=== PATIENT | female | born 1965 | race Caucasian/White ===

== ENCOUNTER 2020-07-03 10:10 | Emergency (ER) | payer SELFPAY ==
[~2020-07-03] VITALS: Ht 172.7 cm; Wt 79.4 kg
[2020-07-03] MEDS ORDERED: ATORVASTATIN CA20 MG PO (10:34)
[2020-07-03] MEDS ORDERED: AMLODIPINE BESYL5 MG PO (10:34)
[2020-07-03] MEDS ORDERED: TRAZODONE HCL150 MG PO (10:34)
[2020-07-03] MEDS ORDERED: EFFEXOR XR150 MG PO (10:34)
[2020-07-03] MEDS ORDERED: LEVOTHYROXINE150 MCG PO (10:34)
== END 2020-07-03 10:54 | disposition left against medical advice (07) ==
LOC: ED 10:10
DX: M25.532 Pain in left wrist (principal); Z79.899 Other long term (current) drug therapy
CPT/HCPCS: 99283

== ENCOUNTER 2021-07-26 03:43 | Inpatient (IN) | payer BC, MEDICARE ==
[~2021-07-26] VITALS: Ht 172.7 cm; Wt 85.0 kg
[~2021-07-26 03:43] MED LIST: AMLODIPINE BESYL5 MG PO; ATORVASTATIN CA20 MG PO; EFFEXOR XR150 MG PO; LEVOTHYROXINE150 MCG PO; TRAZODONE HCL150 MG PO
[2021-07-26] MEDS ORDERED: CHLORTHALIDONE25 MG PO (03:56)
[2021-07-26] MEDS ORDERED: LEVOTHYROXINE125 MCG PO (07:29)
[2021-07-26] MEDS ORDERED: VENLAFAXINE H37.5 M1 PO (07:30)
[2021-07-26] MEDS ORDERED: VENLAFAXINE HC150 MG PO (07:31)
--- NOTE | 2021-07-26 07:50 | NUR ---
Report received fron ED SHOLA Leone, pt stable on 2L via Nc, will be transfered to the [facility] floor via stretcher.
--- NOTE | 2021-07-26 08:10 | NUR ---
Pt arrives to the medsur floor via stretcher, pt able to independently transfer to bed. VSS on 2L via NC. Admission and assesment complete, medications given, and IV abx hung and infusing per provider order. Pt c/o of L ear pain, PRN medication given per request. Pt denies any other needs at this time.
--- NOTE | 2021-07-26 09:06 | NUR ---
THIS RN TO ROOM TO CHECK ON PT. IV ABX COMPLETE, 2ND ABX STARTED. PT UP TO RESTROOM INDEPENDANTLY. VOID MISSES HAT, UNMEASURED. PT DENIES DYSURIA. PT REPORTS LEFT EAR ACHE IS "MUCH BETTER" NOW 11/03. PT DENIES NEED FOR ADDITIONAL MEDICATION. BREAKFAST ARRIVED. PT UP TO CHAIR FOR BREAKFAST. NO ADDITIONAL REQUESTS OR COMPLAINTS. CALL LIGHT WITHIN REACH.
--- NOTE | 2021-07-26 09:19 | NUR ---
PREPPED PT'S CHAIR AND ASSISTED PT WITH IV POLE. PT INDEPENDENT IN ROOM. PT NOW IN CHAIR. CALL LIGHT WITHIN REACH, NO FURTHER NEEDS AT THIS TIME.
--- NOTE | 2021-07-26 09:35 | NUR ---
PT UP IN RODRIGUEZ STATING SHE IS "GOING TO THE GIFT SHOP." PT ADIVSED BY DR. PHAM THAT SHE SHOULD NOT LEAVE THE ROOM SHE MAY BE CONTAGEOUS. PT REPORTS..."WELL I WANTED TO GO OUT AND SMOKE." PT ADVISED THAT SMOKING IS NOT PERMITTED ON HOSPITAL PROPERTY. NICOTENE PATCH AND LOZANGES OFFERED. PT REQUESTS BOTH. ORDER PLACED. PT RETURNS TO ROOM. MEDICATIONS GIVEN (SEE MAR). PTS PRIMARY RN UPDATED. CALL LIGHT WITHIN REACH.
--- NOTE | 2021-07-26 09:56 | NUR ---
PT LYING IN BED CHATTING. CALL LIGHT WITHIN REACH NO FURTHER NEEDS AT THIS TIME.
--- NOTE | 2021-07-26 10:00 | NUR ---
Pt sitting up safely in chair w/ call light in reach, eating breakfast, no needs at this time
--- NOTE | 2021-07-26 12:00 | NUR ---
Pt sitting up in bed eating lunch w/ call light in reach no needs at this time.
--- NOTE | 2021-07-26 12:58 | NUR ---
MED REC COMPLETED BY PHARMACY
--- NOTE | 2021-07-26 14:00 | NUR ---
Pt c/o L ear pain, PRN pain meds given per request, pt sitting up safely in bed w/ call light in reach, denies any further needs at this time
--- NOTE | 2021-07-26 17:00 | NUR ---
Pt c/o continuing L ear pain, PRN pain meds given per request, pt otherwise stable on 2L via NC, no further needs at this time
--- NOTE | 2021-07-26 18:21 | NUR ---
PT HUDDLED UP UNDER BLANKETS. PT SEEMS DROOPY. PT COMPLAINS OF EAR PAIN. BP LOW AND TAKEN TWICE. SHOLA GUERRA NOTIFIED. CALL LIGHT IN REACH, NO FURTHER NEEDS AT THIS TIME
--- NOTE | 2021-07-26 19:30 | NUR ---
IN TO PROVIDE PT WITH ICE WATER AND ICE CHIPS
--- NOTE | 2021-07-26 19:36 | NUR ---
SHIFT REPORT RECEIVED FROM MARI JOLLEY. NEW BAG IV FLUIDS PROVIDED. PT LEFT EAR PAIN 02/02, PRN PAIN MED PROVIDED. NO OTHER NEEDS. CALL LIGHT IN REACH.
--- NOTE | 2021-07-26 21:00 | NUR ---
CALL LIGHT ON, PT STATES SHE PULLED SOMETHING OUT OF HER EAR, WANTS THE RN TO LOOK, THIS INFLATED BALL MOLDER IN TO CHECK RN WAS IN A PT RM, PT HAS BEEN HAVING DRAINAGE FROM EAR INFECTION, WILL HAVE RN TO CHECK UP ON PT, PT ALSO WANTS TO GET SOME TOWELS SO PT CAN SHOWER, LET PT KNOW IT WILL BE A MINUTE, BUT WE WILL TRY TO GET PT A SHOWER SOON WE CAN, NO FURTHER NEEDS AT THIS TIME
--- NOTE | 2021-07-26 21:30 | NUR ---
ASSESSMENT COMPLETED. GCS 15, A&O X4. LUNGS CLEAR IN UPPER LOBES AND DIM IN LOWER LOBES. SPO2 96% ON 2L NC. HEART TONES REGULAR. ABD SOFT, NONTENDER, BOWEL TONES ACTIVE. CMS INTACT. IV WNL, IV FLUIDS INFUSING PER ORDER. ICE WATER PROVIDED. SCHEDULED MEDS PROVIDED. NO OTHER NEEDS. CALL LIGHT IN REACH.
--- NOTE | 2021-07-26 21:40 | NUR ---
IN TO GET VITALS, NO FURTHER NEEDS AT THIS TIME
--- NOTE | 2021-07-26 23:58 | NUR ---
PT RESTING IN BED, EYES CLOSED. RR EVEN, UNLABORED. CALL LIGHT IN REACH.
--- NOTE | 2021-07-27 02:00 | NUR ---
VS AND I&O COMPLTED. PT REPORTS 4/10 LEFT EAR PAIN, PRN PAIN MED PROVIDED. ASSESSMENT COMPLETED. LUNGS CLEAR IN UPPER LOBES AND DIM IN LOWER LOBES. IV WNL, IV FLUIDS INFUSING PER ORDER. NC @ 2L. NO OTHER NEEDS. CALL LIGHT IN REACH.
--- NOTE | 2021-07-27 04:00 | NUR ---
PT RESTING IN BED, EYES CLOSED. RR EVEN, UNLABORED. NC @ 2L. IV FLUIDS INFUSING PER ORDER. CALL LIGHT IN REACH.
--- NOTE | 2021-07-27 05:39 | NUR ---
vs and i&o completeed. iv wnl. new bag iv fluids provided. scheduled med provided. prn pain med provided for 6/10 left ear pain. no other needs. call light in reach.
--- NOTE | 2021-07-27 07:30 | NUR ---
Shift report recieved from SHOLA Brush, pt resting safely w/ call light in reach and eyes closed, RR even and unlabored on 2L via NC
--- NOTE | 2021-07-27 07:43 | EKG ---
[facility] [address] [facility] [place] [address] Signed Normal sinus rhythm Incomplete right bundle branch block Borderline ECG No previous ECGs available Confirmed by PHILLY PHAM MD ([id number]) on 07/27/2021 7:43:12 AM Electronically Signed By: PHILLY PHAM MD 07/27/21 0743 PATIENT NAME: ISAK MOSQUEDA VIJAY Electrocardiogram DATE OF : 63 PHYSICIAN: PHILLY PHAM MD REPORT #: [id number] REPORT IS CONFIDENTIAL AND NOT TO BE RELEASED WITHOUT AUTHORIZATION
--- NOTE | 2021-07-27 10:00 | NUR ---
Pt sitting up in bed w/ call light in reach. Morning assesment complete, scheduled meds given, and IV fluids/abx hung and infusing per provider orders. Pt c/o pain in L ear, PRN pain meds given per request. Pt denies any further needs at this time
--- NOTE | 2021-07-27 13:15 | NUR ---
REPORT RECEIVED FROM RN AND PT. CARE RESUMED. PT. C/O EAR AND BACK PAIN. ADMIN PAIN MED. O2 SPOT CHECKED AND WAS 86% ON RA. PLACED ON 2L NC. WILL CONTINUE TO MONITOR.
--- NOTE | 2021-07-27 15:08 | NUR ---
PATIENT O2 WAS SPOT CHECKED. 96% ON 2L NC. TITRATED TO 1L. WILL CONTINUE TO MONITOR.
--- NOTE | 2021-07-27 19:28 | NUR ---
REPORT RECEIVED FROM DAY SHIFT RN. PT LYING IN BED ALERT AND ORIENTED. DENIES NEEDS AT THIS TIME. WHITE BOARD UPDATED. CALL LIGHT IN REACH.
--- NOTE | 2021-07-27 20:30 | NUR ---
EVENING ASSESSMENT COMPLETE. PRN FOR LEFT EAR/HEADACHE PAIN ADMINISTERED PER EMAR. IVF INFUSING PER ORDER. PT DENIES NAUSEA OR SOB. RESPIRATIONS EVEN. SpO2 95% WITH 1L/NC IN PLACE. FRESH WATER AND SODA PROVIDED. PT DENIES FURTHER NEEDS AT THIS TIME. CALL LIGHT IN REACH.
--- NOTE | 2021-07-27 21:15 | NUR ---
SCHEDULED MEDS ADMINISTERED PER EMAR. PRN FOR PAIN ADMINISTERED FOR CONTINUED LEFT EAR PAIN. PT REPORTS HEADACHE PAIN MUCH IMPROVED.
--- NOTE | 2021-07-27 23:15 | NUR ---
CALL LIGHT ANSWERED. FRESH ICE AND WATER PROVIDED PER REQUEST. NO FURTHER NEEDS AT THIS TIME.
--- NOTE | 2021-07-28 02:05 | NUR ---
PT RESTING IN BED LYING ON RIGHT SIDE. EYES CLOSED. RESPIRATIONS EVEN. IVF INFUSING WNL.
--- NOTE | 2021-07-28 05:06 | NUR ---
CALL LIGHT ANSWERED.IV PUMP ALARMING. NEW BAG IVF INFUSING WNL. PT REPORTS SHE IS RESTING WELL. PRN FOR 4/10 CHRONIC BACK PAIN ADMINISTERED PER EMAR. SCHEDULED MEDS ADMINISTERED. VS AND I&O COMPLETE. ASSESSMENT COMPLETE. PT DENIES SOB. LEFT EAR PAIN IMPROVED. NO FURTHER NEEDS AT THIS TIME. CALL LIGHT IN REACH.
--- NOTE | 2021-07-28 09:00 | NUR ---
REPORT RECEIVED FROM NIGHT RN AND PT. CARE RESUMED. PT. IS ALERT AND ORIENTED. 02 SAT WAS 97% ON 1L NC. TAKEN OFF O2 AND MAINTAINED O2 SAT. AT 94% OR GREATER ON RA. LUNGS DIM. THROUGHOUT RIGHT LUNG. IV SITE WNL AND FLUSHES. DISCUSSED MEDS, POC. LEFT RESTING WITH CALL LIGHT IN REACH.
--- NOTE | 2021-07-28 09:15 | NUR ---
patient in the bed resting with her eyes closed. room is tidy, board updated. no needs at this time. call light within reach.
[2021-07-28] MEDS ORDERED: CEFDINIR300 MG PO (11:20)
[2021-07-28] MEDS ORDERED: METOPROLOL SUCC50 MG PO (11:21)
[2021-07-28] MEDS ORDERED: VENTOLIN HFA18 GM INH (12:25)
[2021-07-28] MEDS ORDERED: ADVAIR HFA 115-12 GM INH (12:26)
[2021-07-28] MEDS ORDERED: XANAX0.25 MG PO (12:27)
--- NOTE | 2021-07-28 13:30 | NUR ---
PT LEFT WITH ALL BELONGINGS VIA WHEELCHAIR WITH RN.
== END 2021-07-28 13:15 | disposition home or self-care (01) | DRG 195 ==
LOC: ED 03:43 → MS 07:04
PROVIDERS: ADMIT Internal Medicine; ATTEND Internal Medicine
DX: J13 Pneumonia due to Streptococcus pneumoniae (principal); M79.7 Fibromyalgia; E87.6 Hypokalemia; H66.92 Otitis media, unspecified, left ear; I10 Essential (primary) hypertension; E03.9 Hypothyroidism, unspecified; Z20.822 Contact with and (suspected) exposure to COVID-19; G89.29 Other chronic pain; M54.9 Dorsalgia, unspecified; F17.210 Nicotine dependence, cigarettes, uncomplicated; T50.2X5A Adverse effect of carbonic-anhydrase inhibitors, benzothiadiazides and other diuretics, initial encounter; E83.42 Hypomagnesemia; Z90.49 Acquired absence of other specified parts of digestive tract; Z98.890 Other specified postprocedural states; Z98.1 Arthrodesis status; Z88.5 Allergy status to narcotic agent; Z88.8 Allergy status to other drugs, medicaments and biological substances; Z79.899 Other long term (current) drug therapy; Z90.89 Acquired absence of other organs
CPT/HCPCS: 71045; 80048; 83735; 85025; 93005; 93010; 94760; 96374; 96375; 96376; 99285-25; 99406; C9803; J0456; J0696; J1170; J1885; J2405; J3480; J7050; J7060; U0003

== ENCOUNTER 2024-06-17 08:58 | Day surgery (SDC) | payer BC, MEDICARE ==
[2024-06-15 16:22] VITALS: BP 116/75
[~2024-06-17] VITALS: Ht 172.7 cm; Wt 88.6 kg
[~2024-06-17 08:58] MED LIST changes: +ADVAIR HFA 115-12 GM INH; +CEFAZOLIN SODIUM 2 GM/20 ML SYR IV SCH; +CEFDINIR300 MG PO; +CHLORTHALIDONE25 MG PO; +HEParin SOD (PORCINE) 5,000 UNIT/0.5 ML SYR SUB-Q SCH; +IBLOOD GLUCOSE TEST STRIP 1 EA TEST VI PRN; +IPRATROPIU0.2 MG/1 M INH; +LACTATED RINGER'S 1,000 ML IV SCH; +LEVOTHYROXINE125 MCG PO; +LIDOCAINE HCL 1% 5 ML SDV INJ ONE; +METOPROLOL SUCC50 MG PO; +NORVASC5 MG PO; +VENLAFAXINE H37.5 M1 PO; +VENLAFAXINE HC150 MG PO; +VENTOLIN HFA18 GM INH; +XANAX0.25 MG PO
[2024-06-17 09:09] VITALS: BP 125/71
[2024-06-17] MEDS ORDERED: LIDOCAINE HCL 4% 5 ML AMP ONE (09:36)
[2024-06-17] MEDS ORDERED: ROCURONIUM BROMIDE 50 MG/5 ML SYR ONE (09:36)
[2024-06-17] MEDS ORDERED: FAMOTIDINE 20 MG/ 2 ML VIAL ONE (09:36)
[2024-06-17] MEDS ORDERED: fentaNYL citrate 100 MCG/2 ML VIAL ONE (09:36)
[2024-06-17] MEDS ORDERED: LACTATED RINGER'S 1,000 ML IV ONE (09:36)
[2024-06-17] MEDS ORDERED: SUGAMMADEX SODIUM 200 MG/2 ML ML ONE (09:36)
[2024-06-17] MEDS ORDERED: METOCLOPRAMIDE HCL 10 MG/2 ML SDV ONE (09:36)
[2024-06-17] MEDS ORDERED: DEXAMETHASONE SOD PHOS 4 MG/ML VIAL ONE (09:36)
[2024-06-17] MEDS ORDERED: ondansetron HCL 4 MG/2 ML VIAL ONE (09:36)
[2024-06-17] MEDS ORDERED: KETOROLAC TROMETHAMINE 30 MG/ML VIAL ONE (09:36)
[2024-06-17] MEDS ORDERED: MIDAZOLAM HCL 2 MG/2 ML VIAL ONE (09:36)
[2024-06-17] MEDS ORDERED: propofoL 200 MG/20 ML VIAL ONE (09:36)
[2024-06-17] MEDS ORDERED: SUCCINYLCHOLINE IN 0.9% NACL 200 MG/10 ML SYRINGE ONE (09:36)
[2024-06-17] MEDS ORDERED: ACETAMINOPHEN 1,000 MG/100 ML VIAL ONE (11:05)
[2024-06-17] MEDS ORDERED: OXYCODON-ACETA1 EAC2 PO (11:11)
[2024-06-17] MEDS ORDERED: ACETAMINOPHEN500 MG PO (11:11)
[2024-06-17] MEDS ORDERED: IBUPROFEN600 MG PO (11:11)
[2024-06-17] MEDS ORDERED: LACTATED RINGER'S 1,000 ML IV SCH (11:15)
[2024-06-17] MEDS ORDERED: IBUPROFEN 600 MG TAB PO PRN (11:15)
[2024-06-17] MEDS ORDERED: ACETAMINOPHEN 500 MG TAB PO PRN (11:15)
[2024-06-17] MEDS ORDERED: NALOXONE HCL 0.4 MG SYR IV PRN ×2 (11:15→11:30)
[2024-06-17] MEDS ORDERED: OXYCODONE/APAP 7.5/325 TAB PO PRN (11:15)
[2024-06-17] MEDS ORDERED: METOCLOPRAMIDE HCL 10 MG/2 ML SDV IV PRN (11:30)
[2024-06-17] MEDS ORDERED: IBLOOD GLUCOSE TEST STRIP 1 EA TEST VI PRN (11:30)
[2024-06-17] MEDS ORDERED: PROCHLORPERAZINE EDISYLATE 10 MG/2 ML VIAL IV PRN (11:30)
[2024-06-17] MEDS ORDERED: MORPHINE SULFATE 10 MG/ML VIAL IV PRN (11:30)
[2024-06-17] MEDS ORDERED: droPERidol 5 MG/2 ML VIAL IV PRN (11:30)
[2024-06-17] MEDS ORDERED: fentaNYL citrate 50 MCG/ML SDV IV PRN (11:30)
[2024-06-17] MEDS ORDERED: ondansetron HCL 4 MG/2 ML VIAL IV PRN (11:30)
--- NOTE | 2024-06-17 12:36 | NUR ---
06/17/24 1236 Marely Agrawal 1103- PT ARRIVES TO THE PACU WITH A NATURAL AIRWAY. RESPS EVEN AND UNLABORED. PT IN SEMI FOWLERS POSITION. LR INFUSING IN L FOREARM. MONITORS PUT IN PLACE. VSS. SURGICAL SITE IS CLEAN, DRY AND INTACT. PT VERBALIZES BEING "COLD". WARM BLANKETS PROVIDED. 10L OF O2 VIA MASK. 1104-O2 DECREASED TO 6L VIA MASK. 1109- PT REPORTS 6/10 PAIN AT SURGICAL SITE AND FEELS NAUSEOUS BUT DOESN'T FEEL LIKE SHE WILL VOMIT. 1110- O2 TURNED OFF WITH SATURATIONS IN THE MID 90S. 1115- 1 GRAM ACETAMINOPHEN GIVEN PER JAIMIE DAMON. FOR PAIN. 1118- O2 SATURATIONS IN THE MID TO HIGH 80S. 4L OF O2 VIA NC IN PLACE. PT REPORTS THAT HER BASELINE O2 SAT IS "88-91%" ON RA. 1122-PT RESTING WITH SOME SLIGHT SNORING NOTED. 1130- PT WAKES AND TURNED DOWN TO 2L VIA NC. AND REPORTS 7/10 PAIN. AND SOME NAUSEA. 1140- ZOFRAN GIVEN , SEE EMAR. 1143- FENTANYL GIVEN, SEE EMAR. PT MOVING IN BED WITH SOME FACIAL GRIMACING NOTED. KNEES OF BED ELEVATED. 1155- PT CONTINUES TO HAVE PAIN 6/10 AT THE SURGICAL SITE, DESCRIBED "SORE". FENTANYL GIVEN, SEE EMAR. 1205-5/10 PAIN REPORTED THAT IS MORE TOLERABLE. PLAN OF CARE DISCUSSED AND INCENTIVE SPIROMETER GIVEN FOR OXYGEN SATURATION IN THE HIGH 80S. EUDCATION ON INCENTIVE SPIROMETER, PT USING WITH EASE. HOB INCREASED AND PT SIPPING ON WATER THAT WAS REQUESTED, AND TOLERATING WELL. 1210-O2 TURNED UP TO 3L VIA NC. PT O2 SATURATIONS ARE IN THE HIGH 80S TO MID 80S. PT ENCOURAGED TO CONTINUE TO COUGH AND DEEP BREATHE ADN USE THE INCENTIVE SPIROMETER. 02 SATURATIONS INCREASED TO LOW 90S. 1234- PT IS AWARE OF PLAN OF CARE. NO QUESTIONS OR CONCERNS. PT BROUGHT BACK TO DAY SURGERY. PT IS SITTING UP IN HIGH FOWLERS AND SIPPING ON WATER. EDUCATION GIVEN ON PAIN MEDICATION AND OXYGEN SATURATION.
[2024-06-17 12:43] VITALS: BP 97/61
--- NOTE | 2024-06-17 12:54 | NUR ---
1240 PT ARRIVED TO DAY SURGERY FROM PACU VIA STREACHER. PT REPORTS 6/10 PAIN AT SURGICAL SITE. PT REPORTS NO NAUSEA AT THIS TIME. REPORT TAKEN FROM MARIAN JOLLEY. PT RESTING IN BED, BED LOW AND LOCKED. CALL LIGHT WITHIN REACH. VITALS TAKEN. IV ASSESSED. PT ABLE TO TOLERATE PO PUDDING. PT HAS SISTER AND IN ROOM AT BEDSIDE. PAIN MEDICINE GIVEN PER EMAR. 1245 pt oxygen reduced down to 2l via nasal canulla due to pt oxygen saturation staying above 90% on 3l. 1250 pt removed from oxygen as pt oxygen sat staying above 90% on 2l. pt oxygen sat staying above 90% on ra.
--- NOTE | 2024-06-17 13:12 | NUR ---
1312 CHECKED ON PT, PT PAIN DOWN TO A 5/10. PT REPORTS NO NAUSEA AT THIS TIME. PT PLACED BACK ON 2L OF OXYGEN DUE TO OXYGEN DIPPING DOWN TO 86% ON RA. PT OXYGEN SATUARATION BACK UP TO 92% ON 2L VIA NASAL CANNULA.
[2024-06-17] MEDS ORDERED: SEVOFLURANE 250 ML BTL INH ONE ×2 (13:16→15:57)
--- NOTE | 2024-06-17 13:33 | NUR ---
1320 PT OXYGEN SATURATION ABOVE 95% ON 2L. PT REMOVED FROM OXYGEN PT ON RA. 1330 PT AMABULATED TO BATHROOM AND VOIDED 150 MLS OF CLEAR YELLOW URINE. PT AMBULATED BACK TO ROOM ON OWN. PT REPORTS NO SHORTNESS OF BREATH OR DIZZINESS. 1334 IV REMOVED FOR DISCHARGE. PT OXYGEN SATURATIONS AT 91% ON RA. PT GETTING DRESSED ON OWN.
[2024-06-17 13:40] VITALS: BP 112/64
--- NOTE | 2024-06-17 13:51 | NUR ---
1335 DISCHARGE INFORMATION GONE OVER WITH PT AND . NO QUESTIONS AT THIS TIME. PT OXYGEN REMAINS ABOUE 90% ON ROOM AIR. PT REPORTS NO SOB OR CHEST PAIN AT THIS TIME. PT REPORTS TOLERABLE 5/10 PAIN. 1340 PT DISCHARGED FROM DAY SURGERY VIA WHEELCHAIR TO FRONT OF THE HOSPITAL TO PT'S HUSBANDS CAR.
--- NOTE | 2024-06-17 14:25 | OR ---
[facility] [address] [place], [place] [address] Signed DATE OF OPERATION: 06/17/2024 SURGEON: Jaimie Pearce MD PREOPERATIVE DIAGNOSIS: Right posterior thorax soft tissue mass, 6 cm. POSTOPERATIVE DIAGNOSIS: Right posterior thorax soft tissue mass, 6 cm subfascial (adjacent to muscle). PROCEDURE: Excision of right posterior thorax soft tissue mass, subfascial 6 cm. ANESTHESIA: General LMA, Jaimie Pacheco CRNA and local 10 mL of 0.25% Marcaine with epinephrine. INDICATION: This 59-year-old white woman is a patient of ELMER Valadez and has been found to have a soft tissue mass of the right posterior thorax. Clinical examination suggests probability of lipoma. She is admitted at this time to undergo excision of the lesion. Quite notably, an ultrasound was performed previously which showed a 5.1 cm mass most consistent with lipoma. She understands the risk of bleeding, infection, cosmetic deformity, recurrence, and other unforeseen complications related to the mass and wished to proceed. FINDINGS: Indeed a smooth somewhat lobulated soft tissue mass consistent with lipoma was identified. It was adjacent to the deep fascia and below the Thu's layer and was excised completely and measured 6 cm. DESCRIPTION OF PROCEDURE: The patient was brought to the operating room, given a general LMA type anesthetic and placed in lateral decubitus position. Careful padding of all pressure points and so forth was undertaken. The right posterior thorax was prepared with a chlorhexidine based solution. The had been identified and marked preoperatively in the day surgery area. The skin was manipulated to best indicate the of the skin and incision was made along those parameters. Dissection was carried through the dermis with electrocautery. A fascial layer was encountered and incised with electrocautery and a smooth lipomatous type mass was noted. This was dissected free with blunt Electronically Signed By: JAIMIE PEARCE MD 06/17/24 1425 PATIENT NAME: ISAK MOSQUEDA OPERATIVE REPORT DATE OF : 63 REPORT #: [id number] PHYSICIAN: JAIMIE PEARCE MD PCP: HAWA CONNORS NP REPORT IS CONFIDENTIAL AND NOT TO BE RELEASED WITHOUT AUTHORIZATION [address] [address] Signed dissection and completely extracted. It was adjacent to the deep posterior thoracic fascia. Electrocautery was used for hemostasis. A 10 mL of 0.25% Marcaine with epinephrine was injected locally. The wound was closed in layers with interrupted 2-0 Vicryl and running subcuticular 3-0 Vicryl for the skin. Steri-Strips were applied as was an Acticoat dressing. Sponge, needle, and instrument counts reported as correct x3. MD ARIS Palomino/MILLER /[id number] cc: ELMER Valadez Copies: ~ Electronically Signed By: JAIMIE PEARCE MD 06/17/24 1425 PATIENT NAME: HEAVENKATHLEENISAK OPERATIVE REPORT DATE OF : 63 REPORT #: [id number] PHYSICIAN: JAIMIE PEARCE MD PCP: HAWA CONNORS NP REPORT IS CONFIDENTIAL AND NOT TO BE RELEASED WITHOUT AUTHORIZATION
--- NOTE | 2024-06-21 08:45 | PATH ---
[facility] [address] [facility] [place], [place] [address] Signed SPECIMEN(S): A RIGHT POSTERIOR THORAX SPECIMEN SOURCE: A. RIGHT POSTERIOR THORAX CLINICAL HISTORY: Soft tissue mass FINAL PATHOLOGIC DIAGNOSIS: Soft tissue, right posterior thorax, excision: - Mature adipose tissue, consistent with lipoma BRP MICROSCOPIC EXAMINATION: Histologic sections of all submitted blocks are examined by light microscopy. These findings, together with the gross examination, support the pathologic diagnosis. GROSS DESCRIPTION: The specimen, labeled and designated "Evangelina ShinAlejandro, per requisition soft tissue mass right posterior thorax," is received in formalin and consists of 7.2 x 3.5 x 2.1 cm portion of yellow lobulated fibroadipose tissue. The outer surface is inked blue and the specimen is serially sectioned revealing a yellow homogenous cut surface. There is no central hemorrhage or necrosis. [facility] sections are submitted in cassette A1. AA (under the direct supervision of a pathologist) The Gross Description was prepared using a voice recognition system. The report was reviewed for accuracy; however, sound-alike word errors, addition and/or deletions may occur. If there is any question about this report, please contact Client Services. ADDITIONAL NOTES: Immunohistochemical and/or in situ hybridization studies if performed in this case included appropriate positive controls that reacted as expected. This test was developed and its performance characteristics determined by [employer]. It has not been cleared or approved by the U.S. Food and Drug Administration. The FDA has determined that such clearance or approval is not necessary. This test is used for clinical purposes. It should not be regarded as investigational or for research. [employer] is certified under the PATIENT NAME: ISAK MOSQUEDA PATHOLOGY DATE OF : 63 REPORT #: [id number] PHYSICIAN: KATERINA PATHOLOGY PCP: HAWA CONNORS NP REPORT IS CONFIDENTIAL AND NOT TO BE RELEASED WITHOUT AUTHORIZATION [facility] [address] [facility] [place] [address] Signed Clinical Laboratory Improvement Amendments of 1988 (CLIA) as qualified to perform high complexity clinical laboratory testing. PERFORMING LABORATORY: Technical component was performed by [employer], [address] [place] [address] (CLIA# [id number]). Professional [facility] [address] [place] [phone] [id number] Diagnostician: Robbie Bhardwaj MD Pathologist Electronically Signed 06/21/2024 Copies: ~ PATIENT NAME: ISAK MOSQUEDA PATHOLOGY DATE OF : 63 REPORT #: [id number] PHYSICIAN: KATERINA GRANADOS PCP: HAWA CONNORS DIRECTOR PROFESSIONAL SERVICES REPORT IS CONFIDENTIAL AND NOT TO BE RELEASED WITHOUT AUTHORIZATION
== END 2024-06-17 13:40 | disposition home or self-care (01) ==
LOC: DS 08:58
PROVIDERS: ATTEND Surgery
PROC: 0JB60ZZ Excision of Chest Subcutaneous Tissue and Fascia, Open Approach (ICD-10-PCS; principal; 2024-06-17 10:00)
DX: R22.2 Localized swelling, mass and lump, trunk (principal)
CPT/HCPCS: 00300; J0131; J0330; J0690; J1100; J1644; J1885; J2250; J2405; J2704; J2765; J3010; J3490; J7121